=== PATIENT | female | born 1995 | race African-American/Black ===

== ENCOUNTER 2019-05-27 20:16 | Emergency (ER) | payer BC ==
[2019-05-27 20:35] VITALS: BP 126/92
[2019-05-27] MEDS ORDERED: Ibuprofen TAB* 600 MG PO ONE (20:55)
[2019-05-27] MEDS ORDERED: Tetan/Diph/Pertus SYR(Tdap)* 0.5 ML SYR(BOOSTRIX) use SYR IM ONE (20:55)
[2019-05-27] MEDS ORDERED: Bupivacaine 0.25% SDV PF* 10 ML VIAL INJ ONE (20:56)
--- NOTE | 2019-05-27 20:57 | UC ---
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 Chief Complaint: UCLaceration Stated Complaint: LEFT POINTER LAC Time Seen by Provider: 05/27/19 20:29 Hx Obtained From: Patient Hx Last Menstrual Period: 04/28/19 Laceration Location: Finger - left 5th between pip and dip Mechanism Of Injury: Sharp Trauma Onset/Duration: Sudden Onset Pain Intensity: 3 Pain Scale Used: 0-10 Numeric Aggravating Factors: Nothing Related History: Dominant Hand Right - Allergies/Home Medications Allergies/Adverse Reactions: Allergies Allergy/AdvReac Type Severity Reaction Status Date / Time No Known Allergies Allergy Verified 05/27/19 20:35 Home Medications: Home Medications Ethinyl Estradiol/Drospirenone [Sofie 3-0.02 mg] 1 tab PO DAILY WITH MEAL [History Confirmed 05/27/19] PMH/Surg Hx/FS Hx/Imm Hx Previously Healthy: Yes - Family History Known Family History: Positive: None - Social History Occupation: Student Lives: Dormitory/Roommates Alcohol Use: Rare Substance Use Type: None Smoking Status (MU): Never Smoked Tobacco Review of Systems All Other Systems Reviewed And Are Negative: Yes Constitutional: Positive: Negative Skin: Positive: Other - u shaped laceration left 2nd finger Eyes: Positive: Negative ENT: Positive: Negative Respiratory: Positive: Negative Cardiovascular: Positive: Negative Gastrointestinal: Positive: Negative Genitourinary: Positive: Negative Motor: Positive: Negative Neurovascular: Positive: Negative Musculoskeletal: Positive: Negative Neurological: Positive: Negative Psychological: Positive: Negative Is Patient Immunocompromised?: No Physical Exam Triage Information Reviewed: Yes Appearance: Well-Appearing, No Pain Distress, Well-Nourished Vital Signs: Initial Vital Signs Temp 98.8 F 05/27/19 20:30 Pulse 95 05/27/19 20:30 Resp 18 05/27/19 20:30 BP 126/92 05/27/19 20:30 Pulse Ox 100 05/27/19 20:30 Vital Signs Reviewed: Yes Eye Exam: Normal Eyes: Positive: Conjunctiva Clear ENT Exam: Normal ENT: Positive: Normal ENT inspection, Hearing grossly normal. Negative: Trismus , Muffled voice, Hoarse voice Neck exam: Normal Neck: Positive: Supple, Nontender Respiratory Exam: Normal Respiratory: Positive: No respiratory distress, No accessory muscle use Cardiovascular Exam: Normal Cardiovascular: Positive: RRR, Pulses Normal, Brisk Capillary Refill Musculoskeletal Exam: Normal Musculoskeletal: Positive: Strength Intact, ROM Intact, No Edema Neurological Exam: Normal Neurological: Positive: Alert, Muscle Tone Normal Psychological Exam: Normal Skin Exam: Other Laceration Repair - Laceration Repair 1 Description: Irregular Laceration Size After Repair: Length (cm) - 4, Width (mm) - 3, Depth (mm) - 2 Modified For Repair: No Type Injection: Digital Anesthesia Used: 0.25% Marcaine - 5 ml total Cleansing Completed Via Routine Prep: Yes Irrigation With Pressure Irrigation Device: Yes Closure Material: Sutures Closure Method: Single Layer Suture Of: Skin Suture Type: Nylon - 6 number 5 .0 suture Re-Evaluation - Re-Evaluation First Eval Change: Improved - well approximated, no bleeding n/m/c intact distally Laceration Course/Dx - Course/Dx Course Of Treatment: mild soap and water wash splint for protection, tetanus updated--patient will return to 10 days for suture removal and check daily for infection - Diagnosis Provider Diagnosis: Laceration of left index finger Discharge ED - Sign-Out/Discharge Documenting (check all that apply): Patient Departure All imaging exams completed and their final reports reviewed: No Studies - Discharge Plan Condition: Stable Disposition: HOME Patient Education Materials: Care For Your Stitches (DC), Finger Laceration (ED ) Referrals: [facility] [Outside] - 06/06/19 (or return to urgent care for suture removal) - Billing Disposition and Condition Condition: STABLE Disposition: Home
== END 2019-05-27 22:08 | disposition home or self-care (01) ==
LOC: UCEAST 20:16
DX: S61.211A Laceration without foreign body of left index finger without damage to nail, initial encounter (principal); W26.0XXA Contact with knife, initial encounter; Y92.9 Unspecified place or not applicable; Z23 Encounter for immunization
CPT/HCPCS: 12001; 90471; 90715; 99202; A9270-GY; G0463; J3490